=== PATIENT | male | born 2000 | race Caucasian/White ===

== ENCOUNTER 2024-04-10 09:34 | Day surgery (SDC) | payer OTHER ==
[~2024-04-10] VITALS: Ht 175.3 cm; Wt 74.8 kg
[2024-04-10] MEDS ORDERED: fentaNYL citrate 0.05 MG/ML VIAL ONE (12:14)
[2024-04-10] MEDS ORDERED: MIDAZOLAM 2 MG/2 ML VIAL ONE (12:15)
[2024-04-10] MEDS: MIDAZOLAM 2 MG/2 ML VIAL IVP ONE (12:29)
== END 2024-04-10 13:55 | disposition home or self-care (01) ==
LOC: MMU 09:34 → MDS 09:34
PROVIDERS: ATTEND Internal Medicine Gastroenterology
DX: R10.13 Epigastric pain (principal); K31.89 Other diseases of stomach and duodenum; F17.210 Nicotine dependence, cigarettes, uncomplicated; Z79.899 Other long term (current) drug therapy
CPT/HCPCS: 36415; 43239; 86677; J2250; J3010